=== PATIENT | female | born 1940 | race Caucasian/White ===

== ENCOUNTER 2025-01-02 10:17 | Outpatient (AMB) | payer MEDICARE, SELFPAY ==
--- NOTE | 2025-01-02 10:48 | MHC.OFFVIS ---
Intake Visit Reasons: results Allergies No Known Allergies Allergy (Verified 01/02/25 09:03) HPI Comments Details: 84 years old woman with reported history of seizure disorder. It happened in 2014 and she was in a departmental store. It was embarrssing to her and she did not want to stop the medicine even if it has not happened since then. She was seeing a different neurologist when she was diagnosed with this condition and has been taking a medicine for many years. She also reported that her previous MRI of brain had revealed an acute or chronic stroke and she was diagnosed with left carotid disease and had left carotid endarterectomy. I reviewed her CAT scan of brain done and [facility] in 2023, which did not reveal any significant abnormality. [facility] Medical History (Updated 01/02/25 @ 10:52 by Bianca Chavez MD) Seizure disorder Review of Systems Const Details: Constitutional:?No fever, chills, fatigue, weight loss, or night sweats. HEENT:?No headache, vision changes, hearing loss, nasal congestion, sore throat. Neurological:?No dizziness, syncope, seizures, numbness, tingling, weakness, tremors, memory loss. Psychiatric:?No anxiety, depression, mood swings, sleep disturbance, or hallucinations. Endocrine:?No heat/cold intolerance, polydipsia, polyuria, or hair/skin changes. Hematologic/Lymphatic:?No easy bruising, bleeding, or lymphadenopathy. Integumentary (Skin):?No rash, lesions, itching, or color changes. ? Physical Exam Neuro Other: Mental Status: Alert and oriented to person, place, and time. Normal attention. Normal spontaneous speech, fluency, and comprehension. No obvious issues with mood and memory. Affect is appropriate. Cranial Nerves: CN II: Visual eagle full to confrontation, visual acuity intact. CN III, IV, : Pupils equal, round, reactive to light and accommodation. Extraocular movements are normal. CN V: Facial sensation is normal. CN VII: Facial movements symmetrical. CN VIII: Hearing intact to bedside conversation is normal. CN IX, X: Palate elevates symmetrically. CN XI: Shoulder shrug and head turn symmetrical. CN XII: Tongue midline without atrophy or fasciculations. Extrapyramidal: Full facial expressions and blinking. No rigidity. Movements are appropriate with no tremor or abnormality. Speech: Normal; no dysarthria or tremor. 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
--- OUTSIDE RECORDS SUMMARY | 2025-01-02 11:00 | XMS_ITS | Encounter Summary ---
Author Organization [facility] Address [address] [place] [address] Care Team Providers Care Ethyl Blender Name Role Phone Ada Crockett MD Primary Care Prov ider Encounter Details Date Type Department Care Team (Late st Contact Info) Description 12/31/2024 Telephone [facility] [place] [address] [facility] [address] [place] [phone] Gloria Lyles MD [address] [facility] [address] [place] [address] Social History Tobacco Use Types Packs/Day Years Used Date Smoking Tobacco: Former Cigarettes Passive Smoke Exposure: Past Smokeless Tobacco: Never Alcohol Use Standard Drinks/Week Comments Yes 1 (1 standard drink = 0.6 oz pur e alcohol) Interpersonal Safety Answer Date Record ed Physical Abuse 08/13/2024 Verbal Abuse 08/13/2024 Comments No Sex and Gender Information Value Date Recorded Sex Assigned at Not on file Legal Sex Female 1:08 AM EST Gender Identity Not on file Sexual Orientation Not on file documented as of this encounter Progress Notes * Gloria Lyles MD - 01/01/2025 6:12 PM EDT Order in * Karely Murillo - 12/31/2024 9:35 AM EDT Patient called to request a discontinuation of Oxygen to be send to [facility] , 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 Please advice documented in this encounter Plan of Treatment Upcoming Encounters Date Type Department Care Team (Late st Contact Info) Description 02/25/2025 9:00 AM EDT Consult [facility] for [facility] - [place] [address] [facility] [address] [place] [phone] Argentina Latham MD [address] [facility] [address] [place] [phone] 03/04/2025 11:00 AM EDT Office Visit Adult Medicine - [place] [address] [place] [address] Ada Crockett MD [address] [place] [address] 05/05/2025 10:45 AM EST Ancillary Procedure [facility] [address] [facility] [address] [place] [address] 06/23/2025 10:30 AM EST Office Visit Vascular Surgery - [place] [address] [facility] [address] [place] [address] Tala Andrea PA [address] [facility] [address] [place] [address] 12/23/2025 11:45 AM EDT Office Visit Pulmonolgy - [place] 175 [facility] [address] [place] [phone] Gloria Lyles MD [address] [facility] [address] [place] [address] documented as of this encounter Visit Diagnoses Not on filedocumented in this encounter Additional Health Concerns Assessment Noted Time PHQ-9 Depression Total Score: 6 07/29/19 25 10:39 AM EST documented as of this encounter Care Teams Ethyl Blender Relationship Specialty Start Date End Date Ada Crockett MD [address] [place] [id number] PCP - General Internal Medicine 04/29/24 documented as of this encounter
== END 2025-01-02 11:35 | disposition home or self-care (01) ==
PROVIDERS: PCP Internal Medicine; Visit Provider Psychiatry & Neurology Neurology
DX: G40.909 Epilepsy, unspecified, not intractable, without status epilepticus (principal)
CPT/HCPCS: 99214

== ENCOUNTER → 2025-01-02 10:17 | Outpatient (BNVA) | payer MEDICARE, SELFPAY | PROVIDERS: PCP Internal Medicine; Visit Provider Psychiatry & Neurology Neurology | DX: G40.909 Epilepsy, unspecified, not intractable, without status epilepticus (principal); Z79.899 Other long term (current) drug therapy | CPT/HCPCS: 99212 ==